=== PATIENT | female | born 1945 | race Caucasian/White ===

== ENCOUNTER 2017-01-18 09:29 | Emergency (ER) | payer MEDICARE ==
[~2017-01-18] VITALS: Ht 162.5 cm; Wt 81.6 kg
[~2017-01-18 09:29] MED LIST: AUGMENTIN 875 M1 TAB PO; LISINOPRIL20 MG PO; MOTRIN600 MG PO; ROBITUSSIN DM120 ML PO; SIMVASTATIN20 MG PO; WELLBUTRIN SR150 MG PO
== END 2017-01-18 11:32 | disposition home or self-care (01) ==
LOC: ED 09:29
DX: S40.022A Contusion of left upper arm, initial encounter (principal); S80.02XA Contusion of left knee, initial encounter; Z79.899 Other long term (current) drug therapy; W10.9XXA Fall (on) (from) unspecified stairs and steps, initial encounter; Y93.89 Activity, other specified; Y92.22 Religious institution as the place of occurrence of the external cause; Y99.8 Other external cause status

== ENCOUNTER 2020-03-03 13:17 | Emergency (ER) | payer MEDICARE ==
[~2020-03-03] VITALS: Ht 162.5 cm; Wt 77.1 kg
[2020-03-03 14:04] LABS: BILIRUBIN 1+; BLOOD 2+ (NEGATIVE); CLARITY TURBID (CLEAR); COLOR RED (YELLOW); GLUCOSE NEGATIVE; KETONE NEGATIVE; LEUKO ESTERASE 3+ (NEGATIVE); NITRITE POSITIVE (NEGATIVE); UROBILINOGEN 0.2 E.U./dl (0.0-1.0)
[2020-03-03 14:05] LABS: RBC TNTC rbc/hpf (0-2)
[2020-03-03 14:28] LABS: BASO # 0.1 10*3/uL (0.0-0.1); BASO % 0.5 % (0.0-1.0); EOS # 0.2 10*3/uL (0.0-0.4); LYMPH # 1.4 10*3/uL (1.3-4.4); LYMPH % 12.2 % (27.0-41.0); MEAN CORPUSCULAR HGB 29.3 pg (27.0-31.0); MEAN CORPUSCULAR HGB CONC 32.5 g/dl (33.0-37.0); MEAN PLATELET VOLUME 9.2 fl (9.6-12.3); MONO # 0.8 10*3/uL (0.1-1.0); MONO % 6.5 % (3.0-9.0); NEUT # 9.2 10*3/uL (2.3-7.9); NEUT % 78.5 % (47.0-73.0); PLATELET COUNT AUTOMATED 344 10*3/uL (130-400); RED CELL DISTRI WIDTH 13.8 % (0-14.5); WHITE BLOOD COUNT 11.8 10*3/uL (4.8-10.8)
[2020-03-03 14:39] LABS: ACT PARTIAL THROMBO TIME 33.6 SECONDS (20.0-32.1)
[2020-03-03 14:52] LABS: ALBUMIN 3.8 gm/dl (3.1-4.5); ALKALINE PHOSPHATASE 65 U/L (45-117); BUN 21 mg/dl (7-24); CHLORIDE 109 mmol/L (98-107); CREATININE 0.89 mg/dL (0.55-1.02); POTASSIUM 4.2 mmol/L (3.5-5.1); SGOT/AST 11 IU/L (3-35); SGPT/ALT 14 U/L (12-78); SODIUM 138 mmol/L (136-145)
[2020-03-03] MEDS ORDERED: SEPTDS PO (15:22)
== END 2020-03-03 15:26 | disposition home or self-care (01) ==
LOC: ED 13:17
PROVIDERS: Emergency Medicine
DX: R31.0 Gross hematuria (principal); R30.0 Dysuria; R11.0 Nausea; Z87.891 Personal history of nicotine dependence; Z79.899 Other long term (current) drug therapy; Z90.49 Acquired absence of other specified parts of digestive tract

== ENCOUNTER 2025-06-10 07:29 | Emergency (ER) | payer MEDICARE ==
[~2025-06-10 07:29] MED LIST changes: +ELIQUIS5 M1 PO; +SEPTDS PO; +ZOCOR40 MG PO
[2025-06-12] MEDS ORDERED: EPINEPHrine Hydrochloride 1 MG/10 ML SYR IV ONE (12:34)
[2025-06-12] MEDS ORDERED: ATROPINE SULFATE 1 MG/10 ML SYR IV ONE (12:34)
[2025-06-12] MEDS ORDERED: CALCIUM CHLORIDE 1 GM/10 ML SYR IV ONE (12:34)
[2025-06-12] MEDS ORDERED: SODIUM BICARBONATE 50 MEQ/50 ML VIAL IV ONE (12:34)
== END 2025-06-10 07:37 ==
LOC: ED 07:29
DX: I46.9 Cardiac arrest, cause unspecified (principal); Z87.891 Personal history of nicotine dependence; I10 Essential (primary) hypertension; F32.A Depression, unspecified; J44.9 Chronic obstructive pulmonary disease, unspecified; Z98.890 Other specified postprocedural states; Z90.49 Acquired absence of other specified parts of digestive tract; Z91.018 Allergy to other foods